=== PATIENT | female | born 1955 | race Caucasian/White ===

== ENCOUNTER 2021-03-02 07:26 | Day surgery (SDC) | payer MEDICARE ==
[2021-02-24 12:28] LABS: BASOPHILS % (AUTO) 1.6 % (0.0-5.0); EOSINOPHILS % (AUTO) 3.2 % (0.0-8.0); HEMATOCRIT 35.6 % (36-48); MEAN CORPUSCULAR HEMOGLOBIN 29.8 pg (27.0-33.0); MEAN CORPUSCULAR HGB CONC 32.6 g/dL (32.0-36.0); MEAN CORPUSCULAR VOLUME 91.5 fL (79-99); MONOCYTES % (AUTO) 11.2 % (3.0-13.0); NEUTROPHILS % (AUTO) 53.7 % (40.0-77.0); PLATELET COUNT (AUTO) 295 K/uL (130-400); RED BLOOD CELL COUNT(AUTO) 3.89 MIL/uL (4.00-5.50); RED CELL DISTRIBUTION WIDTH 15.9 % (11.0-15.5); WHITE BLOOD COUNT (AUTO) 6.2 K/uL (4.8-10.8)
[2021-02-24 12:48] LABS: INR 1.1 (0.85-1.15); PROTHROMBIN TIME 11.9 SEC (9.6-11.6)
[2021-02-24 12:49] LABS: PARTIAL THROMBOPLASTIN TIME 31.1 SEC (26.3-35.5)
[2021-02-24 13:01] LABS: POTASSIUM 3.9 mmol/L (3.5-5.1)
[2021-03-02] VITALS (17 sets, daily range): BP systolic 109–140; BP diastolic 53–86
[~2021-03-02] VITALS: Ht 157.5 cm; Wt 103.6 kg
[~2021-03-02 07:26] MED LIST: ALBU6.7H9 IH; APIX5TAB PO; CALC-1038 PO; CETI10CA5 PO; DILT360C32 PO; DRON400T7 PO; FLUT9.9S16 NS; LORA10TA7 PO; METH500T4 PO; MULT-1367 PO; advair PO
[2021-03-02] MEDS ORDERED: FLUMAZENIL 0.1MG/1ML 5ML VIAL IV ONE (08:39)
[2021-03-02] MEDS ORDERED: FENTANYL CITRATE PF 50 MCG/1 ML 2ML VIAL ONE (08:40)
[2021-03-02] MEDS ORDERED: NALOXONE HCL 0.4 MG/1 ML ML ONE (08:40)
[2021-03-02] MEDS ORDERED: 0.9%NACL 1000ML 1,000 ML IV ONE (08:41)
[2021-03-02] MEDS ORDERED: MIDAZOLAM HCL 1 MG/ML 2ML VIAL ONE ×2 (08:41→10:41)
== END 2021-03-02 13:12 | disposition home or self-care (01) ==
LOC: CLH 07:26 → DAH 07:26 → CLH 13:12
PROVIDERS: ATTEND Internal Medicine Cardiovascular Disease
DX: I48.0 Paroxysmal atrial fibrillation (principal); Z20.822 Contact with and (suspected) exposure to COVID-19; E66.01 Morbid (severe) obesity due to excess calories; I49.1 Atrial premature depolarization; I25.2 Old myocardial infarction; Z88.6 Allergy status to analgesic agent; Z91.040 Latex allergy status; Z98.890 Other specified postprocedural states; Z82.3 Family history of stroke; Z80.1 Family history of malignant neoplasm of trachea, bronchus and lung; Z68.41 Body mass index [BMI] 40.0-44.9, adult
CPT/HCPCS: 36415; 80048; 85025; 85610; 85730; 92960; 93005 ×2; A4215; A4216; A4221; A4222; A4223 ×3; A4606; A4657; A4663; A7002; J2250 ×2; J3010; J7030 ×2; J2310; J3490